=== PATIENT | female | born 1960 | race Caucasian/White ===

== ENCOUNTER → 2017-09-02 11:22 | Outpatient (CLI) | payer BC, SELFPAY ==
[2017-09-02 12:33] LABS: Anion Gap 6 (5-15); BUN 11 mg/dL (7-18); BUN/Creat Ratio 13.8 RATIO (10-20); Calcium,Total 8.3 mg/dL (8.5-10.1); Chloride 105 mmol/L (98-107); Cholesterol 168 mg/dL (200); EST Glomerular Filtration Rate 80 mL/min (>60); Est Glom Filt Rate - Afr Amer 96 mL/min (>60); Glucose 84 mg/dL (74-106); High Density Lipoprotein 48 mg/dL; Potassium 3.5 mmol/L (3.5-5.1); Sodium Level 142 mmol/L (136-145); T4 Total, Thyroxin 9.7 ug/dL (4.8-13.9); Thyroid Stim Hormone (TSH) 1.95 uIU/mL (0.358-3.74); Triglycerides 99 mg/dL; Very Low Density Lipoprotein 20 mg/dL (5-40)
== END ==
PROVIDERS: Family Provider Family Medicine; PCP Family Medicine; Visit Provider Family Medicine
DX: I10 Essential (primary) hypertension (principal); E03.9 Hypothyroidism, unspecified
CPT/HCPCS: 36415; 80048; 80061; 84436; 84443

== ENCOUNTER → 2017-09-02 15:18 | Outpatient (CLI) | payer BC, SELFPAY ==
[2017-09-10 16:01] LABS: HPV HC, High Risk Positive (Negative)
[2017-09-10 16:02] LABS: HPV Reflexed? YES, CHARGE PATIENT
== END ==
PROVIDERS: Visit Provider Obstetrics & Gynecology
DX: Z12.4 Encounter for screening for malignant neoplasm of cervix (principal); Z12.72 Encounter for screening for malignant neoplasm of vagina
CPT/HCPCS: 87624; 88175; G0145

== ENCOUNTER → 2017-09-09 13:06 | Outpatient (CLI) | payer BC, SELFPAY ==
--- NOTE | 2017-09-09 13:08 | VDLE_ITS ---
Reason For Study: edema RIGHT LEFT GSV is normal. GSV is normal. CFV is compressible, spontaneous, phasic, CFV is compressible, spontaneous, phasic, competent and demonstrates normal competent, and demonstrates normal augmentation. augmentation. FV is compressible, spontaneous, phasic, FV is compressible, spontaneous, phasic, competent and demonstrates normal competent and demonstrates normal augmentation. augmentation. POP V is compressible, spontaneous, phasic, POP V is compressible, spontaneous, phasic, competent and demonstrates normal competent and demonstrates normal augmentation. augmentation. T/P Trunk is compressible. T/P Trunk is compressible. PTV is compressible. PTV is compressible. RT PerV is compressible. LT PerV is compressible. Procedure Exam performed in department. The exam was diagnostic. A preliminary report was called and/or faxed to Dr. Orourke. Interpretation Summary Deep veins of the lower extremities are bilaterally patent and compressible segmentally. There is no evidence of deep vein thrombosis on either side. Valvular competence appears intact within the proximal deep venous systems bilaterally. The greater saphenous veins appear bilaterally patent and compressible segmentally. Ordering Physician: Asia Orourke Performed By: Fabián Cruz RVT
== END ==
PROVIDERS: Family Provider Family Medicine; PCP Family Medicine; Visit Provider Family Medicine
DX: R60.0 Localized edema (principal)
CPT/HCPCS: 93970

== ENCOUNTER → 2017-09-24 11:02 | Outpatient (CLI) | payer BC, SELFPAY ==
--- NOTE | 2017-09-24 | ECC_PTH ---
PATIENT: MINNA AMEZQUITA LOC: [facility] U#:[id number] AGE/SX: 65/F ROOM: RE09/24/[address]: Dr. Zion Polo MD : 1960 BED: DIS: SPEC #: [id number] RECD: 09/24/17 10:50 STATUS: REBECCA LINA #: [id number] DANNIE: 09/24/17 00:[address]: Zion Polo DEPT: SURGICAL PATHOLOGY RECD BY: Renny Belcher ENTERED: 09/24/17 11:44 SP TYPE: ECC DAMION DR: Dr. Asia Orourke MD Tissues: Endocervical Procedures: Surgery Specimen Level IV HEADER OPERATION: Colposcopy with biopsy PRE-OP DIAGNOSIS: ASCUS, HPV positive TISSUE SUBMITTED: ECC MICROSCOPIC DIAGNOSIS ECC: Scant detached and unoriented fragments of squamous epithelium, favor metaplastic changes. See comment. SJ:pietro 09/25/17 COMMENT Immunohistochemistry ([id number]) for surrogate HPV marker (p16) is performed and non-contributory, the entire specimen was exhausted after H&E slides. No specimen is noted on IHC slides. Please make reference to previous specimen ([id number]) endocervix, curettings with diagnosis of strips of detached squamous epithelium with moderate dysplasia and ([id number]) ectocervix, LEEP conization with diagnosis of focal HPV change suspected and endocervix, LEEP conization with diagnosis of disarticulated fragments of squamous epithelium with mild to focal moderate dysplasia. Case has been reviewed in consultation with Dr. Cano who concurs with the above diagnosis. IDC:AM MICROSCOPIC DESCRIPTION Slides are reviewed. GROSS DESCRIPTION Received in fixative is one container labeled with the patient's name and designated ECC. The specimen consists of multiple irregular fragments of light adler mucoid tissue that in aggregate measure 2 x 1 x <0.1 cm. The specimen is totally submitted in one cassette. / JOE:pietro 09/24/17 TC:5 CPT: 73427
--- NOTE | 2017-09-24 | IMM_PTH ---
PATIENT: MINNA AMEZQUITA LOC: [facility] U#:[id number] AGE/SX: 65/F ROOM: RE09/24/[address]: Dr. Zion Polo MD : 1960 BED: DIS: SPEC #: [id number] RECD: 09/25/17 12:55 STATUS: REBECCA REQ #: [id number] DANNIE: 09/24/17 00:[address]: Zion Polo DEPT: IMMUNOHISTOCHEMISTRY RECD BY: Nneka Fishman ENTERED: 09/25/17 12:56 SP TYPE: IMMUNO OTHR DR: Dr. Asia Orourke MD Tissues: Endocervical Procedures: p16 (initial) KI-67 (add) PHYSICIAN & INSTITUTION [place] [id number] SPECIMEN INFORMATION: Tissue Source: ECC Clinical Info: ASCUS, HPV positive Specimen Number: [id number] CPT code: 38428, 17468 METHODOLOGY: Deparaffinized sections of prefer/formalin-fixed tissue or PAP/DQ stained slides are incubated with monoclonal/polyclonal antibodies/oligonucleotide probes. Localization is made via biotin free immunoperoxidase method. Appropriate controls are performed and reacted as expected. Results on target cell population are indicated in the following table: RESULTS: ANTIBODY / CLONE RESULT P16 (E6H4) noncontributory Ki-67 (30-9) noncontributory These tests were developed and their performance characteristics determined by [facility]. They may not have been cleared or approved by the U.S. Food and Drug Administration. The FDA has determined that such clearance or approval is not necessary. INTERPRETATION: ECC: Scant detached and unoriented fragments of squamous epithelium, favor metaplastic changes. See comment. Ronny 09/26/17 Comment: No specimen is present on IHC slides. Specimen exhausted after H & E slides.
== END ==
PROVIDERS: Family Provider Family Medicine; PCP Family Medicine; Visit Provider Obstetrics & Gynecology
DX: N87.9 Dysplasia of cervix uteri, unspecified (principal)
CPT/HCPCS: 88305; 88341; 88342

== ENCOUNTER → 2017-09-30 07:54 | Outpatient (CLI) | payer BC, SELFPAY ==
--- NOTE | 2017-09-30 07:56 | HPBI_ITS ---
MAMMOGRAPHY - BILATERAL SCREENING REASON FOR EXAM: Female, 57 years old. Routine annual screening examination. PERTINENT HISTORY: Non-contributory. TECHNIQUE: Digital bilateral breast luan (3D mammographic acquisition) in the CC and MLO projections. 2-D mediolateral oblique (MLO) and craniocaudad (CC) views of both breasts were obtained. CAD: Full Field Digital Mammography with Computer Added Detection was performed. COMPARISON: Comparison is made with prior study dated February 02, 2015 and December 27, 2013. FINDINGS: Breast Composition: The breasts are almost entirely fatty. There are no dominant masses or suspicious calcifications. No other significant abnormalities are identified. There has been no significant change since the prior study. HPBI/SCREENING MAMM (CAD), BILAT IMPRESSION: Stable bilateral screening mammogram. Yearly follow-up mammogram recommended. (A) ASSESSMENT CATEGORY: BIRADS Category 1: Negative. A letter regarding these results will be sent to the patient by the facility within 30 days. Approximately 10% of breast cancers are not detected by mammography. A normal mammogram should not delay biopsy of a clinically suspicious abnormality. [id number] Electronically Signed: James Mancia MD at 9:07 EDT Tel [phone], Service support ,
== END ==
PROVIDERS: Family Provider Family Medicine; PCP Family Medicine; Visit Provider Obstetrics & Gynecology
DX: Z12.31 Encounter for screening mammogram for malignant neoplasm of breast (principal)
CPT/HCPCS: 77063; 77067

== ENCOUNTER → 2018-03-03 10:48 | Outpatient (CLI) | payer BC, SELFPAY ==
[2018-03-03 12:30] LABS: Anion Gap 6 (5-15); BUN 13 mg/dL (7-18); BUN/Creat Ratio 15.9 RATIO (10-20); Calcium,Total 8.6 mg/dL (8.5-10.1); Chloride 106 mmol/L (98-107); Cholesterol 183 mg/dL (200); Creatinine, Serum 0.82 mg/dL (0.55-1.02); EST Glomerular Filtration Rate 77 mL/min (>60); Est Glom Filt Rate - Afr Amer 93 mL/min (>60); Glucose 84 mg/dL (74-106); High Density Lipoprotein 48 mg/dL; Potassium 3.8 mmol/L (3.5-5.1); Sodium Level 143 mmol/L (136-145); T4 Total, Thyroxin 10.1 ug/dL (4.8-13.9); Triglycerides 109 mg/dL; Very Low Density Lipoprotein 22 mg/dL (5-40)
== END ==
PROVIDERS: Family Provider Family Medicine; PCP Family Medicine; Visit Provider Family Medicine
DX: I10 Essential (primary) hypertension (principal); E03.9 Hypothyroidism, unspecified
CPT/HCPCS: 36415; 80048; 80061; 84436; 84443

== ENCOUNTER → 2018-12-23 | Outpatient (CLI) | payer BC, SELFPAY ==
--- NOTE | 2018-12-23 08:26 | RAD_ITS ---
HISTORY: persistent cough EXAM: XR Chest 2 Views: COMPARISON: March 09, 2015 FINDINGS: # of images incl. paperwork: 2 Cervical thoracic anterior fixation hardware is unchanged Lungs are clear. Heart is not enlarged. Bones are normal. Pulmonary vascularity is distinct. No effusions. RAD/Chest PA and Lateral IMPRESSION: Normal. at 2236 Reported and signed by: Roman Drew MD Electronically Signed: Roman Drew MD at 22:35 EDT Tel , Service support ,
== END | disposition home or self-care (01) ==
PROVIDERS: Family Provider Family Medicine; PCP Family Medicine; Referring Provider Family Medicine; Visit Provider Family Medicine
DX: J20.9 Acute bronchitis, unspecified (principal)
CPT/HCPCS: 71046

== ENCOUNTER 2019-03-28 15:51 | Emergency (ER) | payer BC, SELFPAY ==
[2019-03-28 15:53] VITALS: BP 152/104; PULSE 77; RESP 16; TEMP 36.9; O2SAT 96; BMI 39.6
--- NOTE | 2019-03-28 16:08 | ED.VISSUMM ---
- ER Visit Summary Date of Service: 03/28/19 Chief Complaint: [Dental pain and facial swelling] History of Present Illness: The patient is a 58 F [presents to the emergency department complaining of dental swelling that started this morning. Patient states that she is had some pain to her left upper teeth for about 1 week. Patient states she had a lot of dental work done the last several months. Patient states that she had a root canal to her left upper second molar several months ago. Patient denies any fever. Patient states the left side of her face feels warm compared to the other side.] Physical Examination: [HEENT-PERRLA, EOMI. Cranial nerves II through XII grossly intact. TMs clear. Mucous membranes moist. No adenopathy. She has left-sided facial swelling noted. Patient does have tenderness palpation over the left upper second molar. Patient does have gingival swelling with some fluctuance noted. No facial cellulitis. Cardiovascular-regular rate and rhythm without murmur or ectopy Lungs-clear to auscultation, chest wall stable without crepitus or subcu emphysema Abdomen-normoactive bowel sounds, soft, nontender, no rebound or rigidity, no peritoneal signs. Extremities-intact ?4, normal range of motion, normal pulses, atraumatic] Test Results: [None indicated] Emergency Department Course and Treatment: [I offered to I&D suspected gingival abscess which patient agreed. Using an 18-gauge needle stab incision was made into the area of fluctuance however only small amount of bloody fluid was obtained. Patient was started on clindamycin 300 mg p.o.] Treatment Plan: [Will be treated with clindamycin and [place] for pain. He has an appointment with her dentist tomorrow afternoon.] Disposition: [Discharged home in stable condition] Impression: [Dental pain Dental abscess-early] This note was generated with [employer] dictation software. It may contain incorrect words, spelling, and punctuation that were not noted in review of the chart prior to signing ED Disposition - Plan for ED Patient: Referrals: Asia Orourke MD [Primary Care Provider] -
--- NOTE | 2019-03-28 16:11 | ED.DEP ---
ED Disposition - Plan for ED Patient: Instructions: Dental Abscess, Dental Pain Prescriptions: Clindamycin HCl [Cleocin] 300 mg PO Q6H #40 cap Prescription Printed Hydrocodone Bitart/Apap 5-325 [[place] 5MG-325MG] 1 tab PO Q4H PRN PRN 2 Days #10 tab PRN Reason: Pain Prescription Printed Referrals: Asia Orourke MD [Primary Care Provider] - Additional Instructions: see your dentist tomorrow
[2019-03-28 16:15] VITALS: BP 134/106; PULSE 63; RESP 18
[2019-03-28] MEDS: Clindamycin HCl 150 MG Capsule 300 MG PO (16:17)
== END 2019-03-28 16:19 | disposition home or self-care (01) ==
LOC: ED 16:11
PROVIDERS: Emergency Provider Emergency Medicine; Family Provider Family Medicine; PCP Family Medicine
DX: K04.7 Periapical abscess without sinus (principal); K08.89 Other specified disorders of teeth and supporting structures; I10 Essential (primary) hypertension; Z79.899 Other long term (current) drug therapy
CPT/HCPCS: 41800; 99283

== ENCOUNTER → 2019-12-08 15:12 | Outpatient (CLI) | payer BC, SELFPAY ==
[2019-12-08 18:37] LABS: Anion Gap 6 (5-15); BUN 12 mg/dL (7-18); Chloride 105 mmol/L (98-107); Creatinine, Serum 0.86 mg/dL (0.55-1.02); EST Glomerular Filtration Rate 72 mL/min (>60); Est Glom Filt Rate - Afr Amer 87 mL/min (>60); Glucose 93 mg/dL (74-106); Potassium 3.7 mmol/L (3.5-5.1); Sodium Level 142 mmol/L (136-145); T4 Total, Thyroxin 9.2 ug/dL (4.8-13.9); Thyroid Stim Hormone (TSH) 3.63 uIU/mL (0.358-3.74)
== END ==
PROVIDERS: PCP Family Medicine; Referring Provider Family Medicine; Visit Provider Family Medicine
DX: E03.9 Hypothyroidism, unspecified (principal); I10 Essential (primary) hypertension
CPT/HCPCS: 36415; 80048; 84436; 84443

== ENCOUNTER → 2019-12-20 12:28 | Outpatient (CLI) | payer BC, SELFPAY ==
--- NOTE | 2019-12-20 12:32 | BI_ITS ---
MAMMOGRAPHY - BILATERAL SCREENING REASON FOR EXAM: Female, 59 years old. Routine annual screening examination. PERTINENT HISTORY: Non-contributory. TECHNIQUE: Digital bilateral breast susana (3D mammographic acquisition) in the CC and MLO projections. 2-D mediolateral oblique (MLO) and craniocaudad (CC) views of both breasts were obtained. CAD: Full Field Digital Mammography with Computer Added Detection was performed. COMPARISON: Comparison is made with prior study dated September 30, 2017 and February 02, 2015. FINDINGS: Breast Composition: The breasts are almost entirely fatty. There are no dominant masses or suspicious calcifications. Stable small benign appearing bilateral axillary No other significant abnormalities are identified. There has been no significant change since the prior study. BI/SCREEN MAMM (CAD) W/SUSANA BILAT IMPRESSION: Stable bilateral screening mammogram. Yearly follow-up mammogram recommended. (A) ASSESSMENT CATEGORY: BIRADS Category 2: Benign. A letter regarding these results will be sent to the patient by the facility within 30 days. Approximately 10% of breast cancers are not detected by mammography. A normal mammogram should not delay biopsy of a clinically suspicious abnormality. [id number] Electronically Signed: James Mancia, at 13:43 EDT , Service support ,
== END ==
PROVIDERS: PCP Family Medicine; Referring Provider Family Medicine; Visit Provider Family Medicine
DX: Z00.00 Encounter for general adult medical examination without abnormal findings (principal); Z12.31 Encounter for screening mammogram for malignant neoplasm of breast
CPT/HCPCS: 77063; 77067

== ENCOUNTER → 2021-06-12 | Outpatient (CLI) | payer BC, SELFPAY | END | disposition home or self-care (01) | PROVIDERS: PCP Family Medicine; Visit Provider Family Medicine | DX: J06.9 Acute upper respiratory infection, unspecified (principal) | CPT/HCPCS: 87635; U0005; U0003 ==

== ENCOUNTER 2021-09-26 10:06 | Outpatient (CLI) | payer BC, SELFPAY ==
[2021-09-26 12:45] LABS: Anion Gap 4 (5-15); BUN 11 mg/dL (7-18); BUN/Creat Ratio 14.9 RATIO (10-20); Calcium,Total 8.8 mg/dL (8.5-10.1); Chloride 107 mmol/L (98-107); Cholesterol 166 mg/dL (200); Creatinine, Serum 0.74 mg/dL (0.55-1.02); EST Glomerular Filtration Rate 85 mL/min (>60); Est Glom Filt Rate - Afr Amer 103 mL/min (>60); Glucose 89 mg/dL (74-106); High Density Lipoprotein 51 mg/dL; Potassium 3.7 mmol/L (3.5-5.1); Sodium Level 142 mmol/L (136-145); T4 Total, Thyroxin 7.5 ug/dL (4.8-13.9); Thyroid Stim Hormone (TSH) 2.29 uIU/mL (0.358-3.74); Triglycerides 100 mg/dL; Very Low Density Lipoprotein 20 mg/dL (5-40)
== END 2021-09-26 23:59 | disposition home or self-care (01) ==
LOC: MFPLAB 10:07
PROVIDERS: PCP Family Medicine; Referring Provider Family Medicine; Visit Provider Family Medicine
DX: I10 Essential (primary) hypertension (principal); E03.9 Hypothyroidism, unspecified
CPT/HCPCS: 36415; 80048; 80061; 84436; 84443

== ENCOUNTER 2022-01-04 08:16 | Observation (INO) | payer BC, SELFPAY ==
[2022-01-04] VITALS (13 sets, daily range): BP systolic 118–164; BP diastolic 65–100; PULSE 63–74; RESP 17–21; TEMP 36.4–37.2; O2SAT 95–100; BMI 36.1; BMI 35.4
--- NOTE | 2022-01-04 08:30 | EKG12_ITS ---
Test Reason : CP Blood Pressure : / mmHG Vent. Rate : 072 BPM Atrial Rate : 072 BPM P-R Int : 124 ms QRS Dur : 086 ms QT Int : 438 ms P-R-T Axes : 006 020 014 degrees QTc Int : 479 ms Normal sinus rhythm Normal ECG Confirmed by VAISHALI SIMS, RADHA ([id number]), advertising editor GELA POP ([id number]) on 01/07/2022 12:41:40 PM Referred By: Confirmed By:RADHA TOM MD
--- NOTE | 2022-01-04 08:38 | RAD_ITS ---
STUDY: X-RAY CHEST REASON FOR EXAM: Female, 61 years old. Chest pain TECHNIQUE: PA and lateral views of the chest. COMPARISON: Comparison is made with prior study dated 12/23/2018. FINDINGS: EKG electrodes are seen. Mild increased linear markings at the left lung base suggests upper linear atelectasis. There is no demonstrated pleural abnormality. Normal size heart. Normal mediastinum and [place]. Normal visualized pulmonary arteries. There is atherosclerotic tortuosity of the aortic arch and descending thoracic aorta. Normal visualized thoracic spine. Prior fusion in the lower cervical spine. There is no demonstrated abnormality of the visualized soft tissue structures of the upper abdomen. RAD/Chest PA and Lateral IMPRESSION: Mild increased markings at the left lung base suggestive of linear atelectasis. Electronically Signed: James Mancia MD at 8:50 EDT ,
--- NOTE | 2022-01-04 08:39 | EDS_ITS ---
HPI History of Present Illness Chief Complaint: Chest Pain Informant: patient Narrative Narrative: Patient is a 61-year-old female with history of hypertension, hypothyroid, anxiety/depression as well as prior gastric bypass presenting with chest pain. Patient states that she is developed what she felt like was a spasm of muscles in her back around 4 PM. It then started to radiate to the front of her chest. She states since 4 PM she has had constant left-sided chest pain. It is worse when she takes a deep breath, lays on her back or her side. Denies any associated diaphoresis. Did feel little nauseous this morning and almost felt like she had to belch or vomit but because of her prior bypass was not able to throw up. Denies any swelling of her legs. Denies any cough or respiratory symptoms. Denies any change in her bowel habits. Denies any black or blood in her stool. Denies any history of DVT or PE. No other complaints at this time. Denies any known history of any cardiac disease. CVD Risk Factors: Positive for Hypertension PE Risk Factors: Negative for Recent Travel/Surgery, Recent Immobilization, Prior DVT or PE, Cancer or OCP + Smoking + >/=35 [facility] Medical History (Updated 01/04/22 @ 18:[address] Ignacia Lugo, DO) BiPAP (biphasic positive airway pressure) dependence Depression Hypertension Seizures (~08/22/14) Home Medications alprazolam 0.5 mg tablet 0.5 mg PO TID 03/09/15 [History Last Taken 01/03/22 23:00] bisoprolol 5 mg-hydrochlorothiazide 6.25 mg tablet 1 tab PO DAILY BP 01/04/22 [History Last Taken 01/04/22] citalopram 40 mg tablet 40 mg PO DAILY DEPRESSION 01/04/22 [History Last Taken 01/04/22] ibuprofen 200 mg tablet 400 mg PO BID PRN Pain 01/04/22 [History Last Taken 01/03/22 16:00] venlafaxine 75 mg tablet,extended release 24 hr 75 mg PO BID depression 01/04/22 [History Last Taken 01/04/22] Allergy/AdvReac Type Severity Reaction Status Date / Time propoxyphene napsylate AdvReac Nausea/Vom/ Verified 01/04/22 08:16 [From Darvocet-N] Diarrhea Social History Smoking Status: Never smoker ROS ROS ED Constitutional Constitutional ED: Denies chills or fever(s) Eyes Eyes: Denies blurry vision ENT ENT ED: Denies rhinorrhea or sore throat Cardiovascular Cardiovascular: Reports as per HPI and chest pain Respiratory/Chest Respiratory/Chest: Denies cough, dyspnea or dyspnea on exertion Gastrointestinal Gastrointestinal: Reports nausea; Denies abdominal pain or vomiting Musculoskeletal Musculoskeletal: Reports back pain; Denies arthralgias Neurologic Neurologic: Denies headache(s) or paresthesias Psychiatric Psychiatric: Denies anxiety Hematologic/Lymphatic Hematologic/Lymphatic: Denies easy bleeding or easy bruising EXAM Physical Exam Const Vital Signs: 01/04/22 08:17 01/04/22 08:25 01/04/22 08:39 Temperature 97.6 F L Temperature Source Temporal Pulse Rate 70 Respiratory Rate 17 Respiratory Effort Normal Non-Labored Blood Pressure 159/100 H Blood Pressure Mean 119 Pulse Ox 100 96 Oxygen Delivery Method Room Air Room Air 01/04/22 10:24 01/04/22 11:20 01/04/22 13:29 Temperature 98.9 F Temperature Source Oral Pulse Rate 74 66 71 Respiratory Rate 19 H 21 H 20 H Respiratory Effort Blood Pressure 164/97 H 155/85 H 156/97 H Blood Pressure Mean 119 108 116 Pulse Ox 99 97 99 Oxygen Delivery Method Room Air Room Air Room Air 01/04/22 13:32 Temperature 98.9 F Temperature Source Oral Pulse Rate 71 Respiratory Rate 20 H Respiratory Effort Blood Pressure 156/97 H Blood Pressure Mean 116 Pulse Ox 99 Oxygen Delivery Method Room Air Positive well nourished, well developed and obese General Appearance ED: well developed and NAD Nutritional Appearance: obese HEENT Reports moist mucous membranes normocephalic and atraumatic Eyes PERRL and EOMs intact bilaterally Neck supple and no JVD Chest Wall inspection of chest normal and palpation of chest normal Resp normal respiratory effort and clear to auscultation bilaterally Effort and Inspection: Negative for respiratory distress or pain with movement Cardio regular rate, regular rhythm and no murmurs Peripheral Pulses: pulses 2+ throughout GI normal to inspection, nondistended, normoactive bowel sounds, soft to palpation, non-tender and non-distended Extremity General Extremety ED: Negative for edema or tenderness General Extremity: Negative for edema Neuro oriented x3 Motor Exam: Negative for general weakness Psych mental status grossly normal Skin no rashes or lesions noted and no wounds Heart Score History: Slightly/Non-Suspicious ECG: Normal Age: >45 - <65 years Risk Factors: 1 or 2 Risk Factors Troponin: </= Normal Limit Score: 2 MDM MDM MDM Narrative Medical decision making narrative: Patient is evaluated for back pain and change in 2 chest pain. Pain seems more pleuritic in nature. Her D-dimer is normal. X-ray shows of mild increased markings of the left lung base suggestive for linear atelectasis. This is where her pain is we will obtain a CTA for further evaluation to make sure were not missing a subtle infarct or pneumonia. This is negative for PE. Her cardiac work-up is largely negative. Patient is given aspirin and her pain actually worsens while in the emergency room. She is then given IV Toradol and a Lidoderm patch. She has no improvement of her pain. She is a given a GI cocktail with no improvement of her pain. She is given nitroglycerin with some temporary improvement of the central chest pain but continues to have this left- sided chest pain. Lab Data Attestation: I reviewed the patient's lab results. Labs: Laboratory Results - last 24 hr 01/04/22 01/04/22 01/04/22 08:32 08:32 08:32 WBC 9.7 RBC 4.22 Hgb 10.4 L Hct 33.6 L MCV 79.6 L MCH 24.6 L MCHC 31.0 L RDW Std Deviation 43.7 RDW Coeff of Harry 15.1 H Plt Count 199 MPV 11.5 Immature Gran % (Auto) 0.500 Neut % (Auto) 83.3 H Lymph % (Auto) 8.7 L Marin[place] % (Auto) 6.9 Eos % (Auto) 0.2 Baso % (Auto) 0.4 Absolute Neuts (auto) 8.1 H Absolute Lymphs (auto) 0.84 Nucleated RBC % 0 D-Dimer Quant (PE/DVT) 0.46 Sodium 136 Potassium 3.2 L Chloride 100 Carbon Dioxide 31.0 Anion Gap 5 BUN 8 Creatinine 0.80 Estim Creat Clear Calc 68.13 Est GFR (MDRD) Af Amer 94 Est GFR (MDRD) Non-Af 78 BUN/Creatinine Ratio 10.0 Glucose 105 Calcium 8.6 Troponin I High Sens 5 Radiography Chest X-Ray - ED: 2 View, Read by ED Physician, Read by Radiologist and No Acute Disease Diagnostic Testing: Clinical Impression(s) from Imaging Studies Chest X-Ray 01/04/22 08:38 IMPRESSION: Mild increased markings at the left lung base suggestive of linear atelectasis. Electronically Signed: James Mancia MD at 8:50 EDT , Chest CTA 01/04/22 09:57 IMPRESSION: Mild degree of increased linear markings at the left lung base suggestive of linear atelectasis. No evidence of pulmonary embolism. Electronically Signed: James Mancia MD at 10:46 EDT , Rhythm Strip Rhythm Strip: Sinus Rhythm Rate: 72 EKG Initial EKG: Attestation: I personally reviewed and interpreted this EKG as follows: Interpretation: Sinus Rhythm Comments: Normal sinus rhythm at a rate of 72 Normal axis Normal intervals Normal ST segments Discharge Plan Dx/Rx/DC Orders Clinical Impression: Chest pain, Hypertension Disposition Disposition: Acute Care [facility] Discharge Date/Time: 01/04/22 14:34
[2022-01-04 08:40] LABS: Absolute Lymphocyte Count 0.84 X10^3/uL (0.83-4.51); Absolute Neutrophil Count 8.1 X10^3/uL (2.0-7.7); Basophil# 0.04 X10^3/uL; Basophil% 0.4 % (0-1); Eosinophil# 0.02 X10^3/uL; Eosinophils% 0.2 % (0-5); Hematocrit 33.6 % (37-47); Hemoglobin 10.4 g/dL (12.0-15.0); Lymphocyte # 0.84 X10^3/ul (0.83-4.51); Lymphocyte % 8.7 % (19-41); Mean Corpuscular Hgb 24.6 pg (27.0-32.0); Mean Corpuscular Volume 79.6 fL (81-99); Mean Platelet Vol. 11.5 fl (6.2-12.0); Monocyte# 0.67 X10^3/uL; Monocyte% 6.9 % (0-10); NRBC Flagged by Analyzer 0 % (0-5); Neutrophil # 8.08 X10^3/uL (2.7-7.7); Neutrophil % 83.3 % (47-70); Platelet Count 199 K/mm3 (150-450); RBC Distribution Width CV 15.1 % (11.6-14.6); RBC Distribution Width SD 43.7 fl (35.1-43.9); Red Blood Count 4.22 M/mm3 (4.2-5.4); White Blood Count 9.7 K/mm3 (4.4-11.0)
[2022-01-04] MEDS: Aspirin 81 MG TAB.CHEW 324 MG PO (08:44)
[2022-01-04 08:55] LABS: D-Dimer Quantitative (DVT/PE) 0.46 FEU/ug/m (0.27-0.49)
[2022-01-04 08:58] LABS: Anion Gap 5 (5-15); BUN 8 mg/dL (7-18); Calcium,Total 8.6 mg/dL (8.5-10.1); Chloride 100 mmol/L (98-107); EST Glomerular Filtration Rate 78 mL/min (>60); Est Glom Filt Rate - Afr Amer 94 mL/min (>60); Estimated Creatinine Clearance 68.13 ml/min; Glucose 105 mg/dL (74-106); Potassium 3.2 mmol/L (3.5-5.1); Sodium Level 136 mmol/L (136-145); Troponin-I HS 5 pg/mL (3.0-54.0)
--- NOTE | 2022-01-04 09:57 | CT_ITS ---
STUDY: CTA CHEST REASON FOR EXAM: Female, 61 years old. Left sided chest pain, concern for PE RADIATION DOSAGE (If Supplied By Facility): CTDIvol = ( 14.91 ) mGy, DLP = ( 487.61 ) mGycm TECHNIQUE: The examination was performed with the intravenous administration of IV 100mL Isovue-370. Post-processing of the angiographic images was performed, with multiplanar reformation and 3D reconstruction. Individualized dose optimization techniques were used for this CT. COMPARISON: None. FINDINGS: Normal enhancement of the main pulmonary artery and right and left pulmonary arteries. Normal enhancement of the bilateral peripheral pulmonary arteries. There is no demonstrated pulmonary embolism. Normal thoracic aorta and visualized great vessels. There is no demonstrated aortic dissection. Normal heart and pericardium. Normal mediastinum. Normal hilar regions. Normal visualized trachea and bronchi. The lungs are well expanded. Mild degree of increased linear markings at the left lung base suggestive of linear atelectasis. Normal pleura. Normal chest wall structures. Normal osseous structures. Surgical sutures are seen along the lesser curvature of the stomach. Small hiatal hernia. CT/CTA Chest W/WO Contrast IMPRESSION: Mild degree of increased linear markings at the left lung base suggestive of linear atelectasis. No evidence of pulmonary embolism. Electronically Signed: James Mancia MD at 10:46 EDT ,
[2022-01-04] MEDS: Lidocaine 5% Patch 1 PATCH TOPICAL (10:26)
[2022-01-04] MEDS: Ketorolac 15 MG/ML Vial IV (10:27)
[2022-01-04] MEDS: Mag Hydrox/Al Hydrox/Simeth 30 ML UDC PO (12:21)
--- NOTE | 2022-01-04 13:20 | HP.PCM.HOS_ITS ---
HPI - General General Date of Admission: 01/04/22 Date of Service: 01/04/22 Chief Complaint: chest pain HPI Narrative MINNA AMEZQUITA, is a 61 F with a PMh as outlined who presents via the ED on 01/04/2022 with a complaint of chest pain. Chest pain started in her back and radiated to her chest and startd the day before admission. Chest pain was constant and worsened with taking in a deep breath and layiing on her back or side. She denied any palpitations, dizziness, nausea, vomitiing or diarhea. Reivew of systems was otherwise negative. She has never had any PE or DVT before. Vitals were BP of 155/85, DC of 66, RR of 21 and oxygen sats of 97% on room air. CBC showed hb of 10.4, wbc of 9.7 and platelets of 199. Chemistry showed sodium of 136 and potassium of 3.2, as well as Cr of 0.8. Initial troponin was negative. CTA of the chest was negative for PE and showed mild linear atelectasis at left lung base. [facility] Medical History BiPAP (biphasic positive airway pressure) dependence Depression Hypertension Seizures (~08/22/14) Home Medications alprazolam 0.5 mg tablet 0.5 mg PO TID 03/09/15 [History Last Taken 01/03/22 23:00] bisoprolol 5 mg-hydrochlorothiazide 6.25 mg tablet 1 tab PO DAILY BP 01/04/22 [History Last Taken 01/04/22] citalopram 40 mg tablet 40 mg PO DAILY DEPRESSION 01/04/22 [History Last Taken 01/04/22] ibuprofen 200 mg tablet 400 mg PO BID PRN Pain 01/04/22 [History Last Taken 01/03/22 16:00] venlafaxine 75 mg tablet,extended release 24 hr 75 mg PO BID depression 01/04/22 [History Last Taken 01/04/22] Allergy/AdvReac Type Severity Reaction Status Date / Time propoxyphene napsylate AdvReac Nausea/Vom/ Verified 01/04/22 08:16 [From Ricky-Anthony] Diarrhea Social History Smoking Status: Never smoker ROS Constitutional Constitutional: Denies anorexia, chills, fatigue, fever(s), malaise or weakness Eyes Eyes: Denies change in vision ENT HEENT: Denies dysphagia or headache(s) Cardiovascular Cardiovascular: Reports chest pain; Denies dyspnea on exertion, edema, lightheadedness, orthopnea, palpitations, paroxysmal nocturnal dyspnea, rapid heart rate or syncope Respiratory/Chest Respiratory/Chest: Denies cough, dyspnea, excessive phlegm production, hemoptysis, productive cough, shortness of breath at rest, shortness of breath with exertion or wheezing Gastrointestinal Gastrointestinal: Denies abdominal pain, constipation, nausea or vomiting Genitourinary Genitourinary: Denies burning urination Musculoskeletal Musculoskeletal: Denies arthralgias or joint pain Neurologic Neurologic: Denies confusion, dizziness, focal weakness, headache(s), seizures or syncope Psychiatric Psychiatric: Denies anxiety Vital Signs Vital Signs Vital Signs: 01/04/22 08:17 01/04/22 08:25 01/04/22 08:39 Temperature 97.6 F L Temperature Source Temporal Pulse Rate 70 Respiratory Rate 17 Respiratory Effort Normal Non-Labored Blood Pressure 159/100 H Blood Pressure Mean 119 Pulse Ox 100 96 Oxygen Delivery Method Room Air Room Air 01/04/22 10:24 01/04/22 11:20 Temperature Temperature Source Pulse Rate 74 66 Respiratory Rate 19 H 21 H Respiratory Effort Blood Pressure 164/97 H 155/85 H Blood Pressure Mean 119 108 Pulse Ox 99 97 Oxygen Delivery Method Room Air Room Air Weight Weight: 216 lb 14.958 oz Body Mass Index (BMI) 36.1 Physical Exam Const alert, oriented x3 and no apparent distress HEENT normocephalic, head/scalp atraumatic, hearing grossly normal bilaterally and moist oral mucous membranes Neck no lymphadenopathy, supple and no JVD Resp normal respiratory effort, no retractions, no use of accessory muscles and clear to auscultation bilaterally Cardio regular rate, regular rhythm, S1 normal heart sound, S2 normal heart sound and no murmurs GI normal to inspection, nondistended, normoactive bowel sounds, soft to palpation, non-tender and non-distended Extremity normal to inspection Neuro oriented x3, CN's II-XII intact bilaterally and moves all extremities Sensorium / Orientation: awake and alert Motor Exam: strength 5/5 throughout Psych affect normal Results Lab / Micro Data Result Diagrams: 01/04/22 08:32 01/04/22 08:32 Labs: Laboratory Results - last 24 hr 01/04/22 08:32: WBC 9.7, RBC 4.22, Hgb 10.4 L, Hct 33.6 L, MCV 79.6 L, MCH 24.6 L, MCHC 31.0 L, RDW Std Deviation 43.7, RDW Coeff of Harry 15.1 H, Plt Count 199, MPV 11.5, Immature Gran % (Auto) 0.500, Neut % (Auto) 83.3 H, Lymph % (Auto) 8.7 L, Ritchie % (Auto) 6.9, Eos % (Auto) 0.2, Baso % (Auto) 0.4, Absolute Neuts (auto) 8.1 H, Absolute Lymphs (auto) 0.84, Nucleated RBC % 0 01/04/22 08:32: Sodium 136, Potassium 3.2 L, Chloride 100, Carbon Dioxide 31.0, Anion Gap 5, BUN 8, Creatinine 0.80, Estim Creat Clear Calc 68.13, Est GFR (MDRD) Af Amer 94, Est GFR (MDRD) Non-Af 78, BUN/Creatinine Ratio 10.0, Glucose 105, Calcium 8.6, Troponin I High Sens 5 01/04/22 08:32: D-Dimer Quant (PE/DVT) 0.46 Rhythm Strip Rhythm Strip: Sinus Rhythm Rate: 72 Radiology Impression Chest X-Ray 01/04/22 08:38 IMPRESSION: Mild increased markings at the left lung base suggestive of linear atelectasis. Electronically Signed: James Mancia MD at 8:50 EDT , Chest CTA 01/04/22 09:57 IMPRESSION: Mild degree of increased linear markings at the left lung base suggestive of linear atelectasis. No evidence of pulmonary embolism. Electronically Signed: James Mancia MD at 10:46 EDT , Assessment & Plan Assessment/Plan (1) Chest pain: PLAN: Plan #Chest pain * admit to PCU * cycle troponins * SL nitrogluycerin. She was given aspirin in the ED and sys it made the pain worse * CTA negative for PE * for stress test tomorrow if pain persists * she does have a history of gastric bypass, so a GI source of the pain should be considered * #History of seizure disorder * on keppra. Says she had the seizure just once many years ago, and hasnt been on keppra for a while. * #Hypothyroidism; on synthroid #Hypertension; on bisoprolol-HCTZ #History of gastric bypass: had the surgery >10 years ago. Stable #History of chronic back pain * says she uses ibuprofen quite frequently due to her back pain * will place on oral pantoprazole * counseled not to use ibuprofen so frequently, and will benefit from a referral to pain management * #Depression; on citalopram DVT prophylaxis: lovenox code status; full code * Patient counseled extensively about different types of CODE STATUS including full code, DNR CCA and DNR CCA. Patient elects to be full code. * Total [id number] time 17 minutes. Charges/Coding Visit Charges OBSV E&M: 55795 Initial observation care L2 Procedures Hospitalists Procedures: 14897 Advncd Care Plan 30 Min
[2022-01-04] MEDS: Nitroglycerin SL (ED/IMG/CATH) 0.4 MG TABLET SL ×3 (13:37→14:02)
[2022-01-04 17:05] LABS: Troponin-I HS 5 pg/mL (3.0-54.0)
[2022-01-04] MEDS: Acetaminophen 325 MG Tablet 650 MG PO (17:14)
[2022-01-04] MEDS: Pantoprazole Sodium 40 MG Tablet PO (17:24)
[2022-01-04 19:14] LABS: Troponin-I HS 7 pg/mL (3.0-54.0)
[2022-01-04] MEDS: ALPRAZolam 0.5 MG Tablet PO (20:33)
[2022-01-04] MEDS: Venlafaxine XR 75 MG Capsule PO (21:22)
[2022-01-04 23:11] LABS: Troponin-I HS 4 pg/mL (3.0-54.0)
--- NOTE | 2022-01-04 23:15 | EKG12_ITS ---
Test Reason : CP Blood Pressure : / mmHG Vent. Rate : 069 BPM Atrial Rate : 069 BPM P-R Int : 142 ms QRS Dur : 090 ms QT Int : 428 ms P-R-T Axes : 040 015 022 degrees QTc Int : 458 ms Normal sinus rhythm Nonspecific ST and T wave abnormality Abnormal ECG When compared with ECG of 04-JAN-2022 08:26, MANUAL COMPARISON REQUIRED, DATA IS UNCONFIRMED Confirmed by VAISHALI SIMS, RADHA ([id number]), multimedia editor GELA POP ([id number]) on 01/08/2022 8:46:34 AM Referred By: RINKU Confirmed By:RADHA TOM MD
[2022-01-04] MEDS: Morphine 4 MG/ML Syringe IV (23:46)
[2022-01-05 03:00] VITALS: PULSE 62
[2022-01-05 03:20] VITALS: BP 98/56; PULSE 58; RESP 18; TEMP 36.6; O2SAT 94
[2022-01-05 07:00] VITALS: PULSE 74
[2022-01-05] MEDS: Potassium Chloride Oral Tablet 20 MEQ 40 MEQ PO (08:00)
--- NOTE | 2022-01-05 08:30 | EKG12_ITS ---
Test Reason : CP Blood Pressure : / mmHG Vent. Rate : 065 BPM Atrial Rate : 065 BPM P-R Int : 138 ms QRS Dur : 096 ms QT Int : 448 ms P-R-T Axes : 038 010 036 degrees QTc Int : 465 ms Normal sinus rhythm Left ventricular hypertrophy Abnormal ECG When compared with ECG of 04-JAN-2022 23:15, MANUAL COMPARISON REQUIRED, DATA IS UNCONFIRMED Confirmed by VAISHALI SIMS, RADHA ([id number]), movie editor GELA POP ([id number]) on 01/08/2022 8:44:45 AM Referred By: RINKU Confirmed By:RADHA TOM MD
[2022-01-05 08:40] LABS: Absolute Lymphocyte Count 0.73 X10^3/uL (0.83-4.51); Absolute Neutrophil Count 5.6 X10^3/uL (2.0-7.7); Basophil# 0.02 X10^3/uL; Basophil% 0.3 % (0-1); Eosinophil# 0.02 X10^3/uL; Eosinophils% 0.3 % (0-5); Hematocrit 32.2 % (37-47); Hemoglobin 9.8 g/dL (12.0-15.0); Lymphocyte # 0.73 X10^3/ul (0.83-4.51); Lymphocyte % 10.8 % (19-41); Mean Corp Hgb Conc 30.4 g/dL (32-36); Mean Corpuscular Hgb 24.6 pg (27.0-32.0); Mean Corpuscular Volume 80.9 fL (81-99); Mean Platelet Vol. 11.7 fl (6.2-12.0); Monocyte# 0.38 X10^3/uL; Monocyte% 5.6 % (0-10); NRBC Flagged by Analyzer 0 % (0-5); Neutrophil # 5.57 X10^3/uL (2.7-7.7); Neutrophil % 82.6 % (47-70); Platelet Count 158 K/mm3 (150-450); RBC Distribution Width CV 15.2 % (11.6-14.6); Red Blood Count 3.98 M/mm3 (4.2-5.4); White Blood Count 6.8 K/mm3 (4.4-11.0)
[2022-01-05 08:54] LABS: Anion Gap 5 (5-15); BUN 10 mg/dL (7-18); BUN/Creat Ratio 14.6 RATIO (10-20); Calcium,Total 8.5 mg/dL (8.5-10.1); Chloride 101 mmol/L (98-107); Creatinine, Serum 0.68 mg/dL (0.55-1.02); EST Glomerular Filtration Rate 93 mL/min (>60); Est Glom Filt Rate - Afr Amer 113 mL/min (>60); Estimated Creatinine Clearance 80.16 ml/min; Glucose 98 mg/dL (74-106); Potassium 2.9 mmol/L (3.5-5.1); Sodium Level 137 mmol/L (136-145)
[2022-01-05 09:20] VITALS: BP 99/70; PULSE 77; RESP 16; TEMP 36.6; O2SAT 98
[2022-01-05] MEDS: hydroCHLOROthiazide 6.25mg TAB 6.25 MG PO (09:33)
[2022-01-05] MEDS: Pantoprazole Sodium 40 MG Tablet PO (09:33)
[2022-01-05] MEDS: Bisoprolol Fumarate 5 MG Tablet PO (09:33)
[2022-01-05] MEDS: Citalopram 40 MG TABLET PO (09:33)
[2022-01-05] MEDS: Venlafaxine XR 75 MG Capsule PO (09:33)
--- NOTE | 2022-01-05 10:56 | STRESSREP ---
Stress Test Report Exercise myocardial perfusion stress test. 61-year-old lady with a history of chest pain. Stress protocol: Resting KG demonstrates normal sinus rhythm with a rate of 73 bpm normal intervals are noted resting blood pressure is 110/76 mmHg. The patient exercised according to regular Rashard protocol for total duration of 4 minutes and 21 seconds. The maximum heart rate attained 139 bpm which was 86% of max impacted heart rate the maximum workload was 7 metabolic equivalents. At rest there were no ST or T wave changes noted to suggest ischemia and at peak exercise upsloping ST changes were noted with did not meet the criteria for ischemia. No clinical angina was noted. The test was terminated due to the target heart rate being achieved as well as fatigue. Myocardial perfusion protocol. 14.6 mCi of technetium 99m sestamibi was injected at rest. Patient exercised according to regular Rashard protocol for 4 minutes and 20 seconds and at peak exercise 44.3 mCi of technetium 99m sestamibi was injected stress images were obtained stress and rest images were reconstructed and compared in the short axis vertical long and horizontal long axis. Gated images were also obtained. Perfusion SPECT analysis: Review of the stress images demonstrate normal uptake of tracer noted in all areas of the myocardium. The resting images similarly demonstrate normal uptake of tracer noted in all areas of the myocardium. No areas of reversibility are noted to suggest ischemia and no previous infarct is noted. Gated SPECT analysis: The gated ejection fraction 67%. Conclusion: Normal exercise myocardial perfusion stress test at a moderate workload. Preserved ejection fraction.
--- NOTE | 2022-01-05 11:47 | DS.PCM_ITS ---
Providers Date of Admission: 01/04/22 Date of Discharge: 01/05/22 Primary Care Physician: Dr. Asia Orourke MD Reason For Visit: CHEST PAIN Diagnosis Discharge Diagnosis (1) Chest pain: Status: Acute Code(s): R07.9 - Chest pain, unspecified Medications at Discharge Home Medications alprazolam 0.5 mg tablet 0.5 mg PO TID anxiety 03/09/15 bisoprolol 5 mg-hydrochlorothiazide 6.25 mg tablet 1 tab PO DAILY BP 01/04/22 citalopram 40 mg tablet 40 mg PO DAILY DEPRESSION 01/04/22 venlafaxine 75 mg tablet,extended release 24 hr 75 mg PO BID depression 01/04/22 Hospital Course Operations None Procedures Stress test Summary of Care Provided Minutes Spent on Discharge: 40 Hospital Course: MINNA AMEZQUITA, is a 61 F with a PMh as outlined? who presents via the ED? on 01/04/2022 with a complaint of chest pain. Chest pain started in her back and radiated to her chest and startd the day before admission. Chest pain was constant and worsened with taking in a deep breath and layiing on her back or side. She denied any palpitations, dizziness, nausea, vomitiing or diarhea. Reivew of systems was otherwise negative. She has never had any PE or DVT before. Vitals were BP of 155/85, GA of 66, RR of 21 and oxygen sats of 97% on room air. CBC showed hb of 10.4, wbc of 9.7 and platelets of 199. Chemistry showed sodium of 136 and potassium of 3.2, as well as Cr of 0.8. Initial troponin was negative. CTA of the chest was negative for PE and showed mild linear atelectasis at left lung base. She was admitted to be managed for chest pain to rule out ACS. EKG showed no acute ST changes. She had stress test on 01/05/2022 which showed no evidence of ischemia. She remained stable, and chest pain appeared to be more musculoskeletal as it was reproducible with palpation. She was discharged home on 01/05/2022, and is to follow up with her PCP in 1-2 weeks. She was counseled not to take ibuprofen frequently for her back pain, and a dvised to see her PCP for referral to pain management. Patient seen and examined prior to discharge. She had no active complaints and had an uneventful night. Review of systems is otherwise negative. Labs and vitals reviewed. Home meds reviewed and reconciled. Physical Exam Const alert, oriented x3 and no apparent distress General Appearance: cooperative and comfortable Orientation / Consciousness: awake Exam Limitations: no limitations HEENT normocephalic, head/scalp atraumatic, hearing grossly normal bilaterally and moist oral mucous membranes Eyes PERRL and EOMs intact bilaterally Neck no lymphadenopathy, supple and no JVD Resp normal respiratory effort, no retractions, no use of accessory muscles and clear to auscultation bilaterally Cardio regular rate, regular rhythm, S1 normal heart sound, S2 normal heart sound and no murmurs GI normal to inspection, nondistended, normoactive bowel sounds, soft to palpation, non-tender and non-distended Extremity normal to inspection Skin no rashes or lesions noted Neuro oriented x3, CN's II-XII intact bilaterally and moves all extremities Sensorium / Orientation: awake and alert Motor Exam: strength 5/5 throughout Psych affect normal Weight / BMI Weight Weight: 213 lb 2.992 oz Body Mass Index (BMI) 35.4 ABG / Lab / Microbiology Data Result Diagrams: 01/05/22 07:33 01/05/22 07:33 Laboratory: Laboratory Results - last 24 hr 01/04/22 16:14: Troponin I High Sens 5 01/04/22 18:39: Troponin I High Sens 7 01/04/22 22:40: Troponin I High Sens 4 01/05/22 07:33: WBC 6.8, RBC 3.98 L, Hgb 9.8 L, Hct 32.2 L, MCV 80.9 L, MCH 24.6 L, MCHC 30.4 L, RDW Std Deviation 45.0 H, RDW Coeff of Harry 15.2 H, Plt Count 158, MPV 11.7, Immature Gran % (Auto) 0.400, Neut % (Auto) 82.6 H, Lymph % (Auto) 10.8 L, [place] % (Auto) 5.6, Eos % (Auto) 0.3, Baso % (Auto) 0.3, Absolute Neuts (auto) 5.6, Absolute Lymphs (auto) 0.73 L, Nucleated RBC % 0 01/05/22 07:33: Sodium 137, Potassium 2.9 L, Chloride 101, Carbon Dioxide 31.0, Anion Gap 5, BUN 10, Creatinine 0.68, Estim Creat Clear Calc 80.16, Est GFR (MDRD) Af Amer 113, Est GFR (MDRD) Non-Af 93, BUN/Creatinine Ratio 14.6, Glucose 98, Calcium 8.5 D/C Instructions Discharge Diet: Low fat / Low cholesterol Discharge Activity: Return to Normal Activity Weight Bearing Status: Weight bearing as tolerated Call your doctor if you observe: Fever of 101 or Higher, Shortness of breath, Dizziness, Swelling in the ankles and Chest pain Meaningful Use Info Meaningful Use Diagnoses (Choose all that apply): None applicable Discharge Plan Admission Admit Date/Time: 01/04/22 13:37 Primary Reason for Your Visit: chest pain Attending Provider: Vanessa Mann Primary Care Provider: Asia Orourke Instructions Patient Instructions: ED Chest Pain, Noncardiac Discharge Orders/Prescriptions Prescriptions: Continued alprazolam 0.5 MG tablet 0.5 mg PO TID Label Comments: anxiety citalopram 40 mg tablet 40 mg PO DAILY bisoprolol-hydrochlorothiazide 5-6.25 mg tablet 1 tab PO DAILY Label Comments: TAKE 1 TABLET BY MOUTH ONCE DAILY venlafaxine 75 mg tablet extended release 24hr 75 mg PO BID Label Comments: TAKE 1 TABLET BY MOUTH TWICE DAILY Discontinued ibuprofen 200 mg Tablet 400 mg PO BID PRN (Reason: Pain) Referrals / Follow Up: Asia Orourke MD [Primary Care Provider] - Within 1 Week Disposition Disposition (needs filled in before D/C Order can be placed): Home, Self Care Charges/Coding Visit Charges OBSV E&M: 40782 Observation care discharge
[2022-01-05] MEDS: Potassium Chloride 10mEq/100mL 10 MEQ/100 ML IV.SOLN. 100 MEQ IV BOLUS ×3 (12:50→15:14)
[2022-01-05] MEDS: Acetaminophen 325 MG Tablet 650 MG PO (12:53)
[2022-01-05 15:00] VITALS: PULSE 60
[2022-01-05] MEDS: ALPRAZolam 0.5 MG Tablet PO (15:17)
[2022-01-05 15:20] VITALS: BP 98/55; PULSE 63; RESP 16; TEMP 37.2; O2SAT 94
[2022-01-05 17:36] LABS: Potassium 3.6 mmol/L (3.5-5.1)
== END 2022-01-05 11:52 | disposition home or self-care (01) ==
LOC: ED 10:16 → PCU 14:52
PROVIDERS: Admitting Provider Student in an Organized Health Care Education/Training Program; Emergency Provider Emergency Medicine; PCP Family Medicine; Visit Provider Student in an Organized Health Care Education/Training Program
DX: R07.89 Other chest pain (principal); I10 Essential (primary) hypertension; F41.9 Anxiety disorder, unspecified; F32.A Depression, unspecified; Z79.899 Other long term (current) drug therapy; R94.31 Abnormal electrocardiogram [ECG] [EKG]; Z98.84 Bariatric surgery status; G89.29 Other chronic pain; M54.9 Dorsalgia, unspecified; E03.9 Hypothyroidism, unspecified; Z79.890 Hormone replacement therapy
CPT/HCPCS: 36415; 71046; 71275; 78452; 80048; 84132; 84484; 85025; 85379; 93005; 93017; 96361; 96374; 96375; 99218; 99285; A9500; J7040; Q9967; A4216; G0378

== ENCOUNTER → 2022-09-30 | Outpatient (CLI) | payer BC, SELFPAY ==
[2022-09-30 12:46] LABS: Anion Gap 7 (5-15); BUN 8 mg/dL (7-18); BUN/Creat Ratio 10.2 RATIO (10-20); Calcium,Total 8.6 mg/dL (8.5-10.1); Chloride 105 mmol/L (98-107); Cholesterol 163 mg/dL (200); Creatinine, Serum 0.78 mg/dL (0.55-1.02); EST Glomerular Filtration Rate 80 mL/min (>60); Est Glom Filt Rate - Afr Amer 97 mL/min (>60); Glucose 103 mg/dL (74-106); High Density Lipoprotein 60 mg/dL; Sodium Level 143 mmol/L (136-145); Thyroid Stim Hormone (TSH) 2.57 uIU/mL (0.358-3.74); Triglycerides 92 mg/dL; Very Low Density Lipoprotein 18 mg/dL (5-40)
== END | disposition home or self-care (01) ==
LOC: MFPLAB 10:00
PROVIDERS: PCP Family Medicine; Visit Provider Family Medicine
DX: I10 Essential (primary) hypertension (principal); F32.A Depression, unspecified
CPT/HCPCS: 36415; 80048; 80061; 84443

== ENCOUNTER → 2023-04-14 | Outpatient (CLI) | payer BC, SELFPAY ==
[2023-04-14 12:35] LABS: Anion Gap 4 (5-15); BUN 11 mg/dL (7-18); BUN/Creat Ratio 12.6 RATIO (10-20); Calcium,Total 8.5 mg/dL (8.5-10.1); Chloride 105 mmol/L (98-107); Creatinine, Serum 0.87 mg/dL (0.55-1.02); EST Glomerular Filtration Rate 70 mL/min (>60); Est Glom Filt Rate - Afr Amer 85 mL/min (>60); Ferritin 4 ng/mL (8-252); Glucose 100 mg/dL (74-106); Iron 37 ug/dL (50-170); Iron Binding Capacity,Total 507 ug/dL (250-450); Potassium 3.7 mmol/L (3.5-5.1); Sodium Level 140 mmol/L (136-145)
[2023-04-14 18:36] LABS: Vitamin B12 226 pg/mL (211-911)
[2023-04-17 14:09] LABS: HPV APTIMA, High Risk Negative (Negative)
[2023-04-17 16:37] LABS: HPV Reflexed? YES, CHARGE PATIENT
== END | disposition home or self-care (01) ==
PROVIDERS: PCP Family Medicine; Referring Provider Family Medicine; Visit Provider Family Medicine
DX: Z12.4 Encounter for screening for malignant neoplasm of cervix (principal); E87.6 Hypokalemia; F50.89 Other specified eating disorder
CPT/HCPCS: 36415; 80048; 82607; 82728; 83540; 83550; 87624; 88175; G0145

== ENCOUNTER → 2023-04-16 | Outpatient (CLI) | payer BC, SELFPAY ==
[2023-04-16 10:14] LABS: Absolute Lymphocyte Count 1.69 X10^3/uL (0.83-4.51); Absolute Neutrophil Count 3.5 X10^3/uL (2.0-7.7); Basophil# 0.05 X10^3/uL; Basophil% 0.9 % (0-1); Eosinophil# 0.12 X10^3/uL; Eosinophils% 2.1 % (0-5); Hematocrit 35.7 % (37-47); Hemoglobin 10.1 g/dL (12.0-15.0); Lymphocyte # 1.69 X10^3/ul (0.83-4.51); Lymphocyte % 29.1 % (19-41); Mean Corp Hgb Conc 28.3 g/dL (32-36); Mean Corpuscular Hgb 22.5 pg (27.0-32.0); Mean Corpuscular Volume 79.7 fL (81-99); Mean Platelet Vol. 11.8 fl (6.2-12.0); Monocyte% 6.9 % (0-10); NRBC Flagged by Analyzer 0 % (0-5); Neutrophil # 3.54 X10^3/uL (2.7-7.7); Neutrophil % 60.8 % (47-70); Platelet Count 279 K/mm3 (150-450); RBC Distribution Width CV 17.1 % (11.6-14.6); RBC Distribution Width SD 48.9 fl (35.1-43.9); Red Blood Count 4.48 M/mm3 (4.2-5.4); White Blood Count 5.8 K/mm3 (4.4-11.0)
== END | disposition home or self-care (01) ==
PROVIDERS: PCP Family Medicine; Referring Provider Family Medicine; Visit Provider Family Medicine
DX: F50.89 Other specified eating disorder (principal); I10 Essential (primary) hypertension; E87.6 Hypokalemia; F32.A Depression, unspecified
CPT/HCPCS: 36415; 85025

== ENCOUNTER → 2024-05-12 | Outpatient (CLI) | payer BC, SELFPAY ==
--- NOTE | 2024-05-12 15:43 | BI_ITS ---
MAMMOGRAPHY - BILATERAL SCREENING REASON FOR EXAM: Female, 63 years old. Routine annual screening examination. PERTINENT HISTORY: Non-contributory. TECHNIQUE: Digital bilateral breast susana (3D mammographic acquisition) in the CC and MLO projections. 2-D mediolateral oblique (MLO) and craniocaudad (CC) views of both breasts were obtained. CAD: Full Field Digital Mammography with Computer Added Detection was performed. COMPARISON: Comparison is made with prior study dated December 20, 2019 and September 30, 2017. FINDINGS: Breast Composition: The breasts are almost entirely fatty. There are no dominant masses or suspicious calcifications. Stable small benign-appearing bilateral axillary lymph nodes. No other significant abnormalities are identified. There has been no significant change since the prior study. BI/SCRN MAMM (CAD)W/SUSANA BILAT IMPRESSION: Stable bilateral screening mammogram. Yearly follow-up mammogram recommended. (A) ASSESSMENT CATEGORY: BIRADS Category 2: Benign. A letter regarding these results will be sent to the patient by the facility within 30 days. Approximately 10% of breast cancers are not detected by mammography. A normal mammogram should not delay biopsy of a clinically suspicious abnormality. [id number] Electronically Signed: James Mancia MD at 8:40 EDT ,
== END | disposition home or self-care (01) ==
LOC: OPBI 15:43
PROVIDERS: PCP Family Medicine; Referring Provider Family Medicine; Visit Provider Family Medicine
DX: Z12.31 Encounter for screening mammogram for malignant neoplasm of breast (principal)
CPT/HCPCS: 77063; 77067

== ENCOUNTER → 2024-11-08 | Outpatient (CLI) | payer BC, SELFPAY ==
[2024-11-08 20:07] LABS: Anion Gap 10 (5-15); BUN 18 mg/dL (4-19); BUN/Creat Ratio 22.2 RATIO (10-20); Calcium,Total 8.9 mg/dL (7.6-11.0); Carbon Dioxide 27.3 mmol/L (21.0-32.0); Chloride 97 mmol/L (98-108); Creatinine, Serum 0.79 mg/dL (0.70-1.20); EST Glomerular Filtration Rate 84 (>60); Glucose 90 mg/dL (70-99); Sodium Level 135 mmol/L (133-145)
[2024-11-08 20:36] LABS: Cholesterol 210 mg/dL (<=200); High Density Lipoprotein 58 mg/dL; Low Density Lipoprotein Calc. 116 mg/dL; Triglycerides 178 mg/dL; Very Low Density Lipoprotein 36 mg/dL (5-40); cholesterol:hdl ratio screen 3.61
== END | disposition home or self-care (01) ==
LOC: MFPLAB 16:40
PROVIDERS: PCP Family Medicine; Referring Provider Family Medicine; Visit Provider Family Medicine
DX: I10 Essential (primary) hypertension (principal)
CPT/HCPCS: 36415; 80048; 80061